=== PATIENT | male | born 1990 | race Caucasian/White ===

== ENCOUNTER 2018-11-26 17:35 | Emergency (ER) | payer BC ==
[~2018-11-26] VITALS: Ht 170.2 cm; Wt 99.8 kg
[~2018-11-26 17:35] MED LIST: IBUPROFEN800 MG PO; LIDODERM700 MG TOP; NAPROXEN500 MG PO; TRAMADOL HCL50 MG PO; VALIUM5 MG PO; ZOFRAN ODT4 MG SL
[2018-11-26] MEDS ORDERED: OMEPRAZOLE20 MG PO (20:36)
== END 2018-11-26 20:45 | disposition home or self-care (01) ==
LOC: ED 17:35
DX: K27.9 Peptic ulcer, site unspecified, unspecified as acute or chronic, without hemorrhage or perforation (principal)
CPT/HCPCS: 74177; 76705; 80053; 81001; 83690; 85025; 99284-25; C9113; J1885; J2405; Q9967

== ENCOUNTER 2019-03-20 18:24 | Emergency (ER) | payer BC ==
[~2019-03-20] VITALS: Ht 170.2 cm; Wt 99.8 kg
[~2019-03-20 18:24] MED LIST changes: +OMEPRAZOLE20 MG PO
[2019-03-20] MEDS ORDERED: NORCO 7.5-3251 EACH PO (20:10)
[2019-03-20] MEDS ORDERED: ONDANSETRON ODT8 MG PO (20:10)
== END 2019-03-20 20:26 | disposition home or self-care (01) ==
LOC: ED 18:24
DX: B34.9 Viral infection, unspecified (principal); G43.909 Migraine, unspecified, not intractable, without status migrainosus
CPT/HCPCS: 80053; 83735; 85025; 96361; 96374; 96375; 99284-25; J1885; J2405; J7030

== ENCOUNTER 2019-07-04 21:46 | Emergency (ER) | payer BC ==
[~2019-07-04] VITALS: Ht 170.2 cm; Wt 99.8 kg
[~2019-07-04 21:46] MED LIST changes: +NORCO 7.5-3251 EACH PO; +ONDANSETRON ODT8 MG PO
[2019-07-04] MEDS ORDERED: ZOFRAN4 MG PO (23:02)
--- NOTE | 2019-07-05 14:49 | EKG ---
[facility] [address] [facility] [place], [place] [address] Signed Sinus tachycardia Otherwise normal ECG No previous ECGs available Confirmed by DEAN JERRY DO ([id number]) on 07/05/2019 2:49:14 PM Electronically Signed By: DEAN JERRY DO 07/05/19 1449 PATIENT NAME: ALEKS DAVISON Electrocardiogram DATE OF : 89 PHYSICIAN: DEAN JERRY DO REPORT #: [id number] REPORT IS CONFIDENTIAL AND NOT TO BE RELEASED WITHOUT AUTHORIZATION
== END 2019-07-04 23:15 | disposition home or self-care (01) ==
LOC: ED 21:46
DX: R07.89 Other chest pain (principal); G89.29 Other chronic pain; M54.6 Pain in thoracic spine
CPT/HCPCS: 71045; 80053; 83690; 83735; 84484; 85025; 85379; 93005; 93010; 96374; 96375; 99284-25; J1885; J2405

== ENCOUNTER 2021-05-07 21:53 | Emergency (ER) | payer BC ==
[~2021-05-07] VITALS: Ht 170.2 cm; Wt 99.8 kg
[~2021-05-07 21:53] MED LIST changes: +ZOFRAN4 MG PO
== END 2021-05-08 00:37 | disposition home or self-care (01) ==
LOC: ED 21:53
DX: U07.1 COVID-19 (principal); I10 Essential (primary) hypertension
CPT/HCPCS: 87502; 99283; C9803; U0003

== ENCOUNTER 2023-06-22 14:34 | Emergency (ER) | payer BC, OTHER ==
[~2023-06-22] VITALS: Ht 170.2 cm; Wt 99.8 kg
[2023-06-22] MEDS ORDERED: BACTRIM DS TAB1 EACH PO (20:12)
[2023-06-22] MEDS ORDERED: MUPIROCIN22 GM TOP (20:14)
[2023-06-22 20:24] VITALS: BP 152/85
== END 2023-06-22 20:26 | disposition home or self-care (01) ==
LOC: ED 14:34
DX: L03.113 Cellulitis of right upper limb (principal); I10 Essential (primary) hypertension
CPT/HCPCS: 99283; A9270

== ENCOUNTER 2024-10-19 22:59 | Emergency (ER) | payer BC, OTHER ==
[~2024-10-19] VITALS: Ht 170.2 cm; Wt 113.9 kg
[~2024-10-19 22:59] MED LIST changes: +BACTRIM DS TAB1 EACH PO; +MUPIROCIN22 GM TOP
[2024-10-20 01:35] VITALS: BP 135/100
== END 2024-10-20 01:36 | disposition home or self-care (01) ==
LOC: ED 22:59
DX: M25.531 Pain in right wrist (principal); I10 Essential (primary) hypertension
CPT/HCPCS: 73110; 99283

== ENCOUNTER 2025-04-08 19:18 | Emergency (ER) | payer BC, OTHER ==
[~2025-04-08] VITALS: Ht 170.2 cm; Wt 115.0 kg
[2025-04-08] MEDS ORDERED: CELEBREX200 MG PO (20:43)
[2025-04-08] MEDS ORDERED: KETOROLAC TROMETHAMINE 30 MG/ML VIAL IM ONE (21:00)
[2025-04-08 21:15] VITALS: BP 141/96
== END 2025-04-08 21:12 | disposition home or self-care (01) ==
LOC: ED 19:18
DX: S50.11XA Contusion of right forearm, initial encounter (principal); W21.07XA Struck by softball, initial encounter; Y93.64 Activity, baseball; I10 Essential (primary) hypertension; M19.90 Unspecified osteoarthritis, unspecified site
CPT/HCPCS: 73090; 96372; 99283; J1885